=== PATIENT | male | born 1945 | race Asian ===

== ENCOUNTER 2017-02-14 06:28 | Day surgery (SDC) | payer MEDICARE, OTHER ==
[~2017-02-14] VITALS: Ht 175.3 cm; Wt 64.0 kg
[2017-02-14] VITALS (43 sets, daily range): BP systolic 134–183; BP diastolic 73–103; PULSE 55–73; RESP 7–20; Ht 175.3 cm; Wt 64.0 kg
[2017-02-14] MEDS ORDERED: CLOP75TA27 PO (07:36)
[2017-02-14] MEDS ORDERED: ASPI-664 PO (07:37)
[2017-02-14] MEDS ORDERED: METO50TA16 PO (07:38)
[2017-02-14] MEDS ORDERED: VALS1TAB80 PO (07:38)
[2017-02-14] MEDS ORDERED: SIMV20TA PO (07:39)
[2017-02-14] MEDS ORDERED: TAMS0.4C2 PO (07:40)
[2017-02-14] MEDS ORDERED: FINA5TAB4 PO (07:40)
[2017-02-14] MEDS ORDERED: DULO60CA59 PO (07:41)
[2017-02-14] MEDS ORDERED: FOLI-49 PO (07:41)
[2017-02-14] MEDS ORDERED: ICOS1CAP PO (07:42)
[2017-02-14] MEDS ORDERED: LEVO50TA71 PO (07:43)
[2017-02-14] MEDS ORDERED: OMEP20CA16 PO (07:43)
[2017-02-14] MEDS ORDERED: FER325 PO (07:45)
[2017-02-14] MEDS ORDERED: CILO100T PO (07:45)
[2017-02-14] MEDS ORDERED: GABA300C16 PO (07:46)
[2017-02-14] MEDS ORDERED: IBUP800T25 PO (07:47)
--- NOTE | 2017-02-14 08:05 | RADRPT ---
PROCEDURE: XR Chest. CLINICAL INDICATION: Preop. Coronary artery disease TECHNIQUE: Single frontal portable chest was obtained. COMPARISON: None. FINDINGS: Cardiac silhouette is normal. There is calcification in the thoracic aorta. There is an aortic abdifatah nt graft in the descending thoracic aorta. No focal infiltrates identified. There are some granulom atous calcifications in the left upper lobe. Costophrenic angles appear well defined. IMPRESSION: 1. Aortic calcifications. Aortic stent graft and descending aorta. 2. No acute infiltrative process identified. 3. Granulomatous residua. RPTAT: [facility] Physician Conchita Date Time Electronically viewed and signed by Physician Conchita on 02/14/2017 08:05 /
[2017-02-14 08:33] LABS: ADD SCAN DIFF NO
[2017-02-14 08:40] LABS: INR 1.01; PROTIME 13.3 Sec (12.2-14.2)
[2017-02-14 08:44] LABS: BASOPHIL # 0.1 10^3/ul (0.0-0.1); EOSINOPHILS # 0.3 10^3/ul (0.0-0.5); EOSINOPHILS % 5.9 % (0.0-7.0); HEMATOCRIT 35.4 % (42.0-52.0); HEMOGLOBIN 12.1 g/dl (14.0-18.0); LYMPHOCYTES # 1.4 10^3/ul (0.8-2.9); LYMPHOCYTES % 26.2 % (15.0-51.0); MEAN CORPUSCULAR HEMOGLOBIN 33.2 pg (29.0-33.0); MEAN CORPUSCULAR HGB CONC 34.2 g/dl (32.0-37.0); MEAN PLATELET VOLUME 9.6 fl (7.4-10.4); MONOCYTE # 0.4 10^3/ul (0.3-0.9); MONOCYTES % 7.5 % (0.0-11.0); NEUTROPHIL # 3.1 10^3/ul (1.6-7.5); NEUTROPHILS % 59.2 % (39.0-77.0); PLATELET COUNT 232 10^3/UL (140-415); RED BLOOD COUNT 3.65 10^6/ul (4.70-6.10); RED CELL DISTRIBUTION WIDTH 14.2 % (11.5-14.5); WHITE BLOOD COUNT 5.2 10^3/ul (4.8-10.8)
[2017-02-14 08:57] LABS: POTASSIUM 4.2 mmol/L (3.5-5.1)
[2017-02-14 09:04] LABS: CALCIUM 8.8 mg/dl (8.4-10.2); CREATININE 1.14 mg/dl (0.61-1.24)
[2017-02-14] MEDS ORDERED: LIDOCAINE 1% (MDV) 20 ML INJ ONE (09:09)
[2017-02-14] MEDS ORDERED: MIDAZOLAM 1 MG/ML 2 ML INJ ONE (09:09)
[2017-02-14] MEDS ORDERED: IODIXANOL LOCM 100 ML BTL ONE ×4 (09:09→10:34)
[2017-02-14] MEDS ORDERED: HEPARIN 1000 UNITS/ML 10 ML INJ ONE (09:09)
[2017-02-14] MEDS ORDERED: VERAPAMIL 5 MG INJ ONE (09:09)
[2017-02-14] MEDS ORDERED: HEPARIN 1000 UNITS/NS (A-LINE) 1,000 ML ONE (09:09)
[2017-02-14] MEDS ORDERED: NITROGLYCERIN (IC) 100 MCG/ML INJ ONE (09:09)
[2017-02-14] MEDS ORDERED: FENTAnyl 50 MCG/ML VIAL ONE (09:09)
[2017-02-14 09:47] LABS: CHOL/HDL RATIO 2.6 RATIO
[2017-02-14 10:15] LABS: PARTIAL THROMBOPLASTIN TIME 36.4 Sec (25.0-35.0)
[2017-02-14] MEDS ORDERED: CLOPIDOGREL 300 MG TAB ONE (10:50)
[2017-02-14] MEDS ORDERED: SOD CHLORIDE 0.9% 1,000 ML IV SCH (11:14)
[2017-02-14] MEDS ORDERED: AL HYDROX/MG HYDROX/SIMETH 30 ML CUP PO PRN (11:30)
[2017-02-14] MEDS ORDERED: OXYCODONE/ACETAMINOPHEN (5/325) TAB PO PRN (11:30)
[2017-02-14] MEDS ORDERED: ONDANSETRON 4 MG INJ IV PRN (11:30)
[2017-02-14] MEDS ORDERED: morphine 2 MG INJ IV PRN (11:30)
[2017-02-14] MEDS ORDERED: ZOLPIDEM 5 MG TAB PO PRN (11:30)
[2017-02-14] MEDS ORDERED: ACETAMINOPHEN 325 MG TAB PO PRN (11:30)
--- NOTE | 2017-02-14 12:20 | CARRPT ---
DATE OF PROCEDURE: 02/14/2017 TYPE OF PROCEDURE: 1. Left heart catheterization. 2. Coronary angiography. 3. Percutaneous transluminal coronary angioplasty with placement of Synergy drug-eluting stent x1 t o circumflex 2.25 x 20 mm and x3 to LAD 3.0 x 12 mm, 3.0 x 16 mm and 3.0 x 8 mm. 4. Measurement of left ventricular end-diastolic pressure TYPE OF ANESTHESIA: Conscious and local. BRIEF HISTORY: Mr. Sanchez is a 71-year-old male with history of hypertension, dyslipidemia, coronary a rtery disease, status post prior PTCA and stent placement, endovascular aortic repair, who initially presented for preoperative evaluation for spinal surgery and was found to have anterior and inferio r ischemia. Given these findings, the patient was referred for and presents today in order to under go left heart catheterization to assess for the possibility of significant obstructive coronary marielena ry disease lending to his preoperative positive stress test. PROCEDURE: After informed consent was obtained, the patient was brought to the [facility] cardiac catheterization lab where his right radial area was prepped and draped in the usual sterile fashion. Lidocaine 2% was infiltrated into the right radial area in order to achieve adequ ate anesthesia. Using modified Seldinger technique, the radial artery was cannulated and a 6-Iranian arterial sheath was placed. A 6-Iranian JL3.5 catheter was used to cannulate the left main coronar y ostium. With contrast injection, multiple views of the left coronary arterial system were obtaine d. JL3.5 was removed over a guidewire and a JR4 was used to cannulate the right coronary arterial o stium. With contrast injection, multiple views of the right coronary arterial system obtained. JR4 was removed over a guidewire initially after also measuring left ventricular end-diastolic pressure and pulled back across the aortic valve to assess for significant gradient, which there was not. Subsequently, at this time, given the findings of significant blockage in the patient's circumflex a nd LAD, we moved directly to an interventional procedure. The patient had been given heparin during his original cocktail and had previous ACT checked returning at an adequate level. Subsequently, a t this time an XBLAD3 guide was used to cannulate the left main coronary ostium. A 0.014 balanced g uidewire was passed distal to the lesion in the circumflex. The circumflex lesion was pretreated wi th a 2.0 x 12 mm balloon and then subsequently stented with a 2.25 x 20 mm drug-eluting stent, deplo yed at 14 atmospheres, post-dilated with the stent delivery system up to 16 atmospheres. The stent delivery system was removed. Followup angiogram was obtained revealing excellent result deployment the stent, SELENE 3 flow throughout the vessel and no signs of complication including perforation or d issection. Subsequently, at this time, the initial guidewire was pulled back and now redirected to the LAD and passed distal to the long zone of significant in-stent restenosis in the LAD. Subsequently, a 2.5 x 16 mm balloon was used to predilate the lesions up to 16 atmospheres throughout their length. At t he proximal portion of the lesion, there was a calcified portion of in-stent restenosis, which kept watermelon seeding. Subsequently, a 2.5 x 12 mm cutter was used to predilate this lesion up to 16 atmospheres and subsequently removed. The lesions were stented from distal to proximal initially wi th a 3.0 x 16 mm drug-eluting stent, inflated to 16 atmospheres, post-dilated with the stent deliver y system up to 18 atmospheres. A second stent 3.0 x 16 mm inflated to 16 atmospheres and post-dila sigifredo up to 18 atmospheres. Then subsequently, a 3.0 x 8 mm in the proximal portion with 1 to 2 mm ov erlap of the stent deployed at 16 atmospheres, post-dilated x2 to 18 atmospheres and then the balloo n was put in the stent overlap area and again inflations were made up to 18 atmospheres. Followup a ngiogram was obtained revealing excellent result, deployment of 3 stents, SELENE 3 flow throughout the vessel and no signs of complication including perforation or dissection. Subsequently, at this camelia e, the interventional guide and guidewire were removed. Followup angiogram was obtained revealing e xcellent result, deployment of all stents, SELENE 3 flow throughout the vessels, no signs of complicat ion including perforation or dissection. Subsequently, at this time, the patient's radial sheath wa s removed. TR band was applied. This completed the procedure. There were no noted complications. FINDINGS: Coronary angiography: Left main 4 mm, no significant stenoses. Circumflex proximally is a 3 mm ves shaneka and has a proximal 20% to 30% stenosis. In the midportion of the circumflex, there is a very fo jensen 90% stenosis. The remainder of the circumflex thereafter is free of significant focal stenoses. The LAD proximally is a 3.5 mm vessel and has an ostial 40% stenosis, at the LAD at the bend there was a 20% stenosis and then a long stented zone with in-stent restenosis up to approximately 70% to 80%. The remainder of the LAD thereafter is free of significant focal stenoses. There is a mid br anching diagonal, 2.5 mm and ostial 20% stenosis. Right coronary artery proximally is a 3 mm vessel , in its midportion it has a 20% stenosis. The remainder of the right coronary artery is free of si gnificant focal stenoses. It is a large vessel and covers a large territory and is dominant, gives off a 2.5 mm PDA and a 2.5 mm posterolateral branch, each with 20% stenoses. Measurement of left ventricular end-diastolic pressure 15. No significant aortic stenosis by gradie nt. PTCA and stent placement: Prior to PTCA and stent placement within the circumflex vessel, patient h ad a 90% stenosis. Post-PTCA and stent placement, the patient had no residual stenosis, SELENE 3 flow throughout the vessel and no signs of complication including perforation or dissection, and moderat e step down at the distal end of stent. PTCA and stent placement within the patient's LAD: Prior to PTCA and stent placement within the pat ient's LAD, the patient had a long in-stent restenosis region up to approximately 80%. Post-PTCA an d stent placement, the patient had no residual stenosis, SELENE 3 flow throughout the vessel and no co mplications including perforation or dissection. TOTAL FLUOROSCOPY TIME: 21 minutes. TOTAL CONTRAST: 220 mL. IMPRESSION: 1. Two-vessel obstructive coronary artery disease involving a high-grade circumflex and high-grade in-stent restenotic lesions in the LAD, status post successful percutaneous transluminal coronary an gioplasty and stent placement x1 to circumflex and x3 to left anterior descending with Synergy drug- eluting stents. 2. Normal left heart filling pressures. 3. No significant aortic stenosis by gradient. RECOMMENDATIONS: In light of procedure and findings at this time would: 1. Maximize medical management. 2. The patient will be placed on Plavix 75 mg 1 tab p.o. daily times at least 1 year. 3. Aspirin 325 mg 1 tab p.o. daily for indefinitely. 4. Aggressive risk factor reduction. 5. The patient will be admitted to the ICU for post-intervention observation and continued manageme nt of symptoms with probable discharge tomorrow if the patient remains stable. 6. It is additionally noted that the patient had received a radial cocktail, that he had received 5 00 units of heparin, 2.5 verapamil and 200 mcg of IC nitroglycerin, and additionally had received a Plavix load of 600 mg p.o. x1 and 325 mg of aspirin at the completion of procedure. Dictated By: ADONIS MARTINEZ/SINDHU Conf#: [id number] DID#: [id number]
[2017-02-14] MEDS ORDERED: ASPIRIN 325 MG TAB PO ONE (13:30)
[2017-02-14] MEDS ORDERED: VALSARTAN HYDROCHLOROTHIAZIDE PO SCH (15:30)
[2017-02-14] MEDS ORDERED: METOPROLOL (XL) 50 MG TAB PO ONE (16:00)
[2017-02-14] MEDS: HYDROCHLOROTHIAZIDE 12.5 MG CAP PO SCH (16:25)
--- NOTE | 2017-02-14 20:00 | RADRPT ---
Vent Rate: 58 bpm RR Interval: 0 msec [place] Interval: 212 msec QRS Duration: 94 msec QT Interval: 434 msec QTC Interval: 426 msec P-R-T [place]: 48 - -14 - 68 degrees Sinus bradycardia with 1st degree AV block Incomplete right bundle branch block Borderline ECG Electronically Signed By: Kiran Boogie [id number]
--- NOTE | 2017-02-14 20:01 | RADRPT ---
Vent Rate: 61 bpm RR Interval: 0 msec [place] Interval: 178 msec QRS Duration: 84 msec QT Interval: 420 msec QTC Interval: 422 msec P-R-T [place]: 57 - -47 - 50 degrees Normal sinus rhythm Left anterior fascicular block Abnormal ECG Electronically Signed By: Kiran Boogie [id number]
[2017-02-14] MEDS: GABAPENTIN 300 MG CAP PO SCH (20:37)
[2017-02-14] MEDS: VALSARTAN 160 MG TAB PO SCH (20:37)
[2017-02-14] MEDS ORDERED: TAMSULOSIN (SR) 0.4 MG CAP PO SCH (21:00)
[2017-02-14] MEDS ORDERED: ATORVASTATIN 10 MG TAB PO SCH (21:00)
--- NOTE | 2017-02-14 21:34 | QN ---
Documentation Comment [id number] CARLOTA MAXWELL MD February 14, 2017 21:34
[2017-02-15] VITALS (17 sets, daily range): BP systolic 128–180; BP diastolic 70–107; PULSE 49–71; RESP 6–16
--- NOTE | 2017-02-15 03:08 | CONS ---
DATE OF ADMISSION: 02/14/2017 DATE OF CONSULTATION: 02/14/2017 Thank you, Dr. Boogie, for kindly asking me to see in consultation. HISTORY OF PRESENT ILLNESS: Mr. Sanchez has a history of CAD, history of amyloidosis, spine arthritis, anemia, hypothyroidism, dyslipidemia. The patient was seen post-procedure, underwent coronary angiogram and intervention. The patient denies cp. PAST MEDICAL HISTORY: Positive CAD, BPH, hypertension, hypothyroidism, amyloidosis, dyspepsia. ALLERGY HISTORY: NEGATIVE. FAMILY HISTORY: Negative. SOCIAL HISTORY: Negative. MEDICATIONS: 1. Aspirin. 2. Pletal. 3. Plavix. 4. Duloxetine. 5. Iron sulfate. 6. Proscar. 7. Folic acid. 8. Hydrochlorothiazide. 9. Ibuprofen. 10. Levothyroxine. 11. Metoprolol. 12. Omeprazole. 13. Simvastatin. 14. Flomax. REVIEW OF SYSTEMS: HEENT: Unremarkable. RESPIRATORY: Unremarkable. CARDIOVASCULAR: Unremarkable. ABDOMEN: Unremarkable. EXTREMITIES: Unremarkable. PHYSICAL EXAMINATION: GENERAL: The patient is awake, alert. VITAL SIGNS: Stable. HEENT: Head is with pulse 69, blood pressure 157/86. HEENT: Atraumatic, normocephalic. Pupils equal, reactive to light. NECK: Supple. No JVD. LUNGS: Clear. CARDIOVASCULAR: S1, S2 are normal. ABDOMEN: Soft, nontender. Bowel sounds present. No palpable mass or hepatosplenomegaly. No guarding, rebound tenderness. EXTREMITIES: No cyanosis, clubbing, or edema. CENTRAL NERVOUS SYSTEM: The patient is awake, alert, no focal deficit. LABORATORY DATA: As mentioned above, potassium 4.2, hematocrit 35.4. IMPRESSION: The patient is status angiogram, PCI, hypertension, anemia, dyslipidemia, hypothyroidism. PLAN: To continue to give this patient home medication and per Dr. Boogie. Laboratory data will be followed. Dictated By: CARLOTA CAMPA/NTS Conf#: [id number] DID#: [id number] MTDD
[2017-02-15] MEDS ORDERED: LEVOTHYROXINE 50 MCG TAB PO SCH ×2 (06:00→07:00)
[2017-02-15 06:13] LABS: ADD SCAN DIFF NO
[2017-02-15 06:26] LABS: BASOPHILS % 0.7 % (0.0-2.0); EOSINOPHILS # 0.4 10^3/ul (0.0-0.5); HEMATOCRIT 34.4 % (42.0-52.0); HEMOGLOBIN 11.3 g/dl (14.0-18.0); LYMPHOCYTES # 1.5 10^3/ul (0.8-2.9); LYMPHOCYTES % 25.1 % (15.0-51.0); MEAN CORPUSCULAR HEMOGLOBIN 32.3 pg (29.0-33.0); MEAN CORPUSCULAR HGB CONC 32.8 g/dl (32.0-37.0); MEAN CORPUSCULAR VOLUME 98.3 fl (82.0-101.0); MEAN PLATELET VOLUME 9.8 fl (7.4-10.4); MONOCYTE # 0.5 10^3/ul (0.3-0.9); MONOCYTES % 8.9 % (0.0-11.0); NEUTROPHIL # 3.5 10^3/ul (1.6-7.5); NEUTROPHILS % 59.1 % (39.0-77.0); PLATELET COUNT 202 10^3/UL (140-415); RED CELL DISTRIBUTION WIDTH 14.4 % (11.5-14.5)
[2017-02-15 06:55] LABS: POTASSIUM 4.2 mmol/L (3.5-5.1)
[2017-02-15 06:58] LABS: CALCIUM 8.6 mg/dl (8.4-10.2); CREATININE 1.29 mg/dl (0.61-1.24)
[2017-02-15] MEDS: GABAPENTIN 300 MG CAP PO SCH ×2 (08:57→12:35)
[2017-02-15] MEDS: HYDROCHLOROTHIAZIDE 12.5 MG CAP PO SCH (08:57)
[2017-02-15] MEDS: VALSARTAN 160 MG TAB PO SCH (08:58)
[2017-02-15] MEDS ORDERED: FOLIC ACID 1 MG TAB PO SCH (09:00)
[2017-02-15] MEDS ORDERED: METOPROLOL (XL) 50 MG TAB PO SCH (09:00)
[2017-02-15] MEDS ORDERED: CLOPIDOGREL 75 MG TAB PO SCH ×2 (09:00)
[2017-02-15] MEDS ORDERED: ASPIRIN (EC) 325 MG TAB PO SCH (09:00)
[2017-02-15] MEDS ORDERED: FINASTERIDE 5 MG TAB PO SCH (09:00)
[2017-02-15] MEDS ORDERED: FERROUS SULFATE (EC) 325 MG TAB PO SCH (09:00)
[2017-02-15] MEDS ORDERED: DULOXETINE 30 MG CAP DR PO SCH (09:00)
--- NOTE | 2017-02-15 11:03 | CONS ---
Date/Time of Note Date/Time of Note DATE: 02/15/17 TIME: 10:53 Assessment/Plan Assessment/Plan Chief Complaint/Hosp Course IMp: 1.POD#1 s/p PTCA/stent x 3 to LAD and x 1 to LCX 2.HTN 3.abnl mpi-prior to PTCA/stent 4.HL 5.Preop for back surgery 6. bradycardia- to 50's 7. Hypopthyroid Recc: -tele monitoring -Contnue asa/plavix -Continue BB/statin/HCTZ/diovan -ambulate patient and if no sig bleeding/dizziness/chest pain then ok fore d/c from cardiac standpoint -F/U 02/22/17 @3:00pm with DR Chamorro Problems: Consultation Date/Type/Reason Admit Date/Time February 14, 2017 at 14:00 Initial Consult Date 02/14/2017 Type of Consultation: Cardiology Reason for Consultation abnl mpi s/p ptca/stent Referring Provider: INGA RIVERA MD Exam/Review of Systems Vital Signs Vitals Vital Signs Date Time Temp Pulse Resp B/P Pulse Ox O2 Delivery O2 Flow Rate FiO2 02/15/17 10:00 68 13 140/84 99 02/15/17 08:00 98.3 02/15/17 06:00 Room Air Intake and Output 02/14/17 02/14/17 02/15/17 15:00 23:00 07:00 Intake Total 75 ml 625 ml 460 ml Output Total 200 ml 700 ml 1050 ml Balance -125 ml -75 ml -590 ml Exam Review of Systems: CONSTITUTIONAL: No fevers, chills. PULMONARY: No sob CARDIOVASCULAR: No chest pain/palpitations GASTROINTESTINAL: No nausea/vomiting. GENITOURINARY: No hematuria/dysuria. MUSCULOSKELETAL: No myagias/arthalgias. PSYCHIATRIC: The patient denies depression. NEUROLOGIC: No weakness Constitutional: alert, oriented Psych: no complaints Head: normocephalic ENMT: mucosa pink and moist Neck: jvd (9 cm water), supple Respiratory: diminished breath sounds Cardiovascular: regular rate and rhythm Gastrointestinal: non-tender, soft Musculoskeletal: muscle tone (normal) Extremities: other (R radial area no ecchymosis/swelling and has palpabale pulse) Neurological: other (no focal deficits) Results Result Diagram: 02/15/17 0605 02/15/17 0605 Results 24 hrs Laboratory Tests Test 02/15/17 06:05 White Blood Count 6.0 Red Blood Count 3.50 L Hemoglobin 11.3 L Hematocrit 34.4 L Mean Corpuscular Volume 98.3 Mean Corpuscular Hemoglobin 32.3 Mean Corpuscular Hemoglobin Concent 32.8 Red Cell Distribution Width 14.4 Platelet Count 202 Mean Platelet Volume 9.8 Neutrophils % 59.1 Lymphocytes % 25.1 Monocytes % 8.9 Eosinophils % 6.0 Basophils % 0.7 Nucleated Red Blood Cells % 0.0 Neutrophils # 3.5 Lymphocytes # 1.5 Monocytes # 0.5 Eosinophils # 0.4 Basophils # 0.0 Nucleated Red Blood Cells # 0.0 Sodium Level 141 Potassium Level 4.2 Chloride Level 108 Carbon Dioxide Level 24 Anion Gap 13 Blood Urea Nitrogen 22 H Creatinine 1.29 H Glucose Level 92 Calcium Level 8.6 Medications Medications Current Medications Aspirin (Ecotrin) 325 mg DAILY PO Last administered on 02/15/17 08:58; Admin Dose 325 MG; Start 02/15/17 at 09:00 Clopidogrel Bisulfate (plaVIX) 75 mg DAILY PO Last administered on 02/15/17 08: 58; Admin Dose 75 MG; Start 02/15/17 at 09:00 Acetaminophen (Tylenol Tab) 650 mg Q4H PRN PO NON-CARDIAC PAIN LEVEL 1-3; Start 02/14/17 at 11:30 Oxycodone/ Acetaminophen (Percocet (5/ 325)) 1 tab Q4H PRN PO REPORTED NON- CARDIAC PAIN 4-7; Start 02/14/17 at 11:30 Morphine Sulfate (morphine) 1 mg Q1H PRN IV PAIN NOT RELIEVED BY OTHERS; Start 02/14/17 at 11:30 Al Hydrox/Mg Hydrox/Simethicone (Mag-Al Plus) 30 ml Q4H PRN PO GASTROINTESTINAL UPSET; Start 02/14/17 at 11:30 Ondansetron HCl (Zofran Inj) 4 mg Q4H PRN IV NAUSEA AND/OR VOMITING; Start 02/14 at 11:30 Duloxetine HCl (Cymbalta) 60 mg DAILY PO Last administered on 02/15/17 08:57; Admin Dose 60 MG; Start 02/15/17 at 09:00 Ferrous Sulfate (Ferrous Sulfate (Ec)) 325 mg DAILY PO Last administered on 02/15 08:57; Admin Dose 325 MG; Start 02/15/17 at 09:00 Finasteride (Proscar) 5 mg DAILY PO Last administered on 02/15/17 08:58; Admin Dose 5 MG; Start 02/15/17 at 09:00 Folic Acid (Folic Acid) 1 mg DAILY PO Last administered on 02/15/17 08:59; Admin Dose 1 MG; Start 02/15/17 at 09:00 Gabapentin (Neurontin) 300 mg TID PO Last administered on 02/15/17 08:57; Admin Dose 300 MG; Start 02/14/17 at 21:00 Metoprolol Succinate (Toprol Xl) 50 mg DAILY PO Last administered on 02/15/17 08:58; Admin Dose 50 MG; Start 02/15/17 at 09:00 Tamsulosin HCl (Flomax) 0.4 mg HS PO Last administered on 02/14/17 20:37; Admin Dose 0.4 MG; Start 02/14/17 at 21:00 Atorvastatin Calcium (Lipitor) 10 mg QHS PO Last administered on 02/14/17 20:37 ; Admin Dose 10 MG; Start 02/14/17 at 21:00 Levothyroxine Sodium (Synthroid) 50 mcg DAILY@06 PO Last administered on 06:03; Admin Dose 50 MCG; Start 02/15/17 at 06:00 Valsartan (Diovan) 160 mg BID PO Last administered on 02/15/17 08:58; Admin Dose 160 MG; Start 02/14/17 at 21:00 Hydrochlorothiazide (Hydrochlorothiazide) 12.5 mg DAILY PO Last administered on 02/15/17 08:57; Admin Dose 12.5 MG; Start 02/14/17 at 16:00 ADONIS CHAMORRO February 15, 2017 11:03
--- NOTE | 2017-02-15 12:41 | PDOCDIS ---
Discharge Instructions CONDITION Patient Condition: Stable HOME CARE INSTRUCTIONS: Diet Instructions: Low Fat /Cholesterol (low fat low jensen 2 g na) ACTIVITY: Activity Restrictions: Rest between Activity Avoid heavy lifting FOLLOW UP/APPOINTMENTS Appointments f/u dr dominguez 1 wk see pcp [address] maxwell renal 2 wks bmp out pt sunday CARLOTA MAXWELL MD February 15, 2017 12:41
[2017-02-15] MEDS ORDERED: ASPI-664 PO (12:43)
[2017-02-15] MEDS ORDERED: CLOP75TA27 PO (12:43)
[2017-02-15] MEDS ORDERED: METO50TA16 PO (12:43)
[2017-02-15] MEDS ORDERED: SIMV20TA PO (12:43)
[2017-02-15] MEDS ORDERED: hydrALAzine 20 MG INJ IV ONE (13:00)
--- NOTE | 2017-02-15 17:15 | QN ---
Documentation Comment [id number] CARLOTA MAXWELL MD February 15, 2017 17:15
--- NOTE | 2017-02-16 03:41 | DS ---
DATE OF ADMISSION: 02/14/2017 DATE OF DISCHARGE: 02/15/2017 HISTORY AND HOSPITAL COURSE: The patient was admitted with CAD and underwent coronary angiogram by Dr. Boogie. The patient had left heart catheterization, coronary angiography, percutaneous translu fran coronary angioplasty with placement of Synergy dual drug-eluting stent x1 to circumflex and to LAD. The patient was monitored in intensive care unit and was cleared by the consultants to be dis charged home. DISCHARGE DIAGNOSES: Include 1. Left heart catheterization. 2. Coronary angiography. 3. Percutaneous transluminal coronary angioplasty and stenting to LAD and circumflex. 4. Anemia. 5. Acute kidney injury. 6. Hypertension. 7. Dyslipidemia. DISCHARGE INSTRUCTIONS: The patient is to drink plenty of fluid. The patient is to have basic meta bolic panel checked again on Sunday. DISCHARGE MEDICATIONS: Continue 1. Aspirin. 2. Pletal. 3. Plavix. 4. Duloxetine. 5. Iron sulfate. 6. Proscar. 7. Folic acid. 8. Gabapentin. 9. Vascepa. 10. Levothyroxine. 11. Metoprolol. 12. Omeprazole. 13. Simvastatin. 14. Flomax. 15. Diovan. 16. Hydrochlorothiazide once laboratory data reviewed next week. DIET: Cardiac diet. CONDITION: The patient is stable at the time of discharge. Dictated By: CARLOTA CAMPA/NTS Conf#: [id number] DID#: [id number]
--- NOTE | 2017-02-16 16:39 | RADRPT ---
Vent Rate: 56 bpm RR Interval: 0 msec [place] Interval: 230 msec QRS Duration: 92 msec QT Interval: 442 msec QTC Interval: 426 msec P-R-T [place]: 53 - -12 - 13 degrees Sinus bradycardia with 1st degree AV block Incomplete right bundle branch block Nonspecific T wave abnormality Abnormal ECG Electronically Signed By: Kiran Boogie [id number]
== END 2017-02-15 13:25 | disposition home or self-care (01) ==
LOC: SDS 06:28 → ICU 14:00 → UNDOADMIN 14:00 → SDS 14:00 → ICU 14:16 → SDS 02-15 13:25
PROVIDERS: ATTEND Internal Medicine Nephrology
DX: I25.10 Atherosclerotic heart disease of native coronary artery without angina pectoris (principal); I10 Essential (primary) hypertension; E78.5 Hyperlipidemia, unspecified; E03.9 Hypothyroidism, unspecified; Z79.82 Long term (current) use of aspirin; Z79.02 Long term (current) use of antithrombotics/antiplatelets; N40.0 Benign prostatic hyperplasia without lower urinary tract symptoms
CPT/HCPCS: 71010; 80048; 80061; 85025; 85610; 85730; 93005; 93458; C1724; C1725; C1769; C1874; C1887; C9600; J0360; J1644; J2250; J3010; Q9967

== ENCOUNTER → 2017-09-25 | Outpatient (CLI) | payer MEDICARE, OTHER ==
[~2017-09-25] MED LIST: ASPI-664 PO; CILO100T PO; CLOP75TA27 PO; DULO60CA59 PO; FER325 PO; FINA5TAB4 PO; FOLI-49 PO; GABA300C16 PO; ICOS1CAP PO; LEVO50TA71 PO; METO-319 PO; OMEP20CA16 PO; SIMV20TA PO; TAMS0.4C2 PO; VALS1TAB80 PO
[2017-09-25 13:26] LABS: BASOPHIL # 0.1 10^3/ul (0.0-0.1); EOSINOPHILS # 0.5 10^3/ul (0.0-0.5); EOSINOPHILS % 10.1 % (0.0-7.0); HEMATOCRIT 30.1 % (42.0-52.0); HEMOGLOBIN 10.3 g/dl (14.0-18.0); LYMPHOCYTES # 1.7 10^3/ul (0.8-2.9); LYMPHOCYTES % 32.8 % (15.0-51.0); MEAN CORPUSCULAR HEMOGLOBIN 33.3 pg (29.0-33.0); MEAN CORPUSCULAR HGB CONC 34.2 g/dl (32.0-37.0); MEAN CORPUSCULAR VOLUME 97.4 fl (82.0-101.0); MEAN PLATELET VOLUME 9.9 fl (7.4-10.4); MONOCYTE # 0.3 10^3/ul (0.3-0.9); MONOCYTES % 5.7 % (0.0-11.0); NEUTROPHIL # 2.6 10^3/ul (1.6-7.5); NEUTROPHILS % 49.8 % (39.0-77.0); PLATELET COUNT 249 10^3/UL (140-415); RED BLOOD COUNT 3.09 10^6/ul (4.70-6.10); RED CELL DISTRIBUTION WIDTH 14.6 % (11.5-14.5); WHITE BLOOD COUNT 5.2 10^3/ul (4.8-10.8)
[2017-09-25 13:32] LABS: ALBUMIN 3.9 g/dl (3.3-4.9); ALBUMIN/GLOBULIN RATIO 1.21; BILIRUBIN,INDIRECT 0.2 mg/dl (0-1.1); BILIRUBIN,TOTAL 0.2 mg/dl (0.2-1.3); CALCIUM 9.1 mg/dl (8.4-10.2); CREATININE 1.61 mg/dl (0.61-1.24); POTASSIUM 4.9 mmol/L (3.5-5.1); TOTAL PROTEIN 7.1 g/dl (6.1-8.1)
[2017-09-25 13:34] LABS: INR 0.97
[2017-09-25 13:35] LABS: PARTIAL THROMBOPLASTIN TIME 33.6 Sec (25.0-35.0)
[2017-09-25 13:51] LABS: ADD UMIC NO; UR ASCORBIC ACID NEGATIVE (NEGATIVE); UR BILIRUBIN (Dip) NEGATIVE (NEGATIVE); UR BLOOD (Dip) NEGATIVE (NEGATIVE); UR CLARITY CLEAR (CLEAR); UR COLOR YELLOW (YELLOW); UR GLUCOSE (Dip) NEGATIVE (NEGATIVE); UR KETONES (Dip) NEGATIVE (NEGATIVE); UR LEUKOCYTE ESTERASE (Dip) NEGATIVE Leu/ul (NEGATIVE); UR NITRITE (Dip) NEGATIVE (NEGATIVE); UR SPECIFIC GRAVITY (Dip) 1.016 (1.003-1.030); UR TOTAL PROTEIN (Dip) NEGATIVE (NEGATIVE); UR UROBILINOGEN (Dip) NEGATIVE (NEGATIVE)
[2017-09-25 13:59] LABS: THROMBIN TIME 14.2 SEC (13.8-19.1)
--- NOTE | 2017-09-25 16:21 | RADRPT ---
PROCEDURE: XR Chest. CLINICAL INDICATION: Dyspnea TECHNIQUE: Single frontal chest x-ray. COMPARISON: 02/14/2017 FINDINGS: Multiple calcified granulomas are seen in the left upper lung. The heart is normal in size. There i s aortic atherosclerosis. Aortic endograft is seen in the ascending aorta and upper abdominal aorta. There are no pleural effusions or pneumothoraces. The osseous structures are intact. IMPRESSION: 1. No radiographic acute cardiopulmonary abnormalities. 2. Multiple calcified granulomas in the left upper lung. 3. Aortic endograft. 4. Aortic atherosclerosis. RPTAT: BB .Alfredito Lucio MD, Date Time Electronically viewed and signed by .Alfredito Lucio MD, on 09/25/2017 16:20 .O/
== END | disposition home or self-care (01) ==
LOC: LAB 12:44
PROVIDERS: ATTEND Internal Medicine Nephrology
DX: I12.9 Hypertensive chronic kidney disease with stage 1 through stage 4 chronic kidney disease, or unspecified chronic kidney disease (principal); N18.9 Chronic kidney disease, unspecified
CPT/HCPCS: 71010; 80053; 81003; 85025; 85049; 85610; 85670; 85730